=== PATIENT | female | born 1985 | race Caucasian/White ===

== ENCOUNTER 2019-07-25 10:31 | Outpatient (CLI) | payer OTHER, SELFPAY ==
--- NOTE | ~2019-07-25 | MR_ITS ---
EXAMINATION: MR MRCP wo/w con/w 3D wo ind DATE: 07/25/2019 11:53 INDICATION: Right upper quadrant pain, abnormal levels of other serum enzymes TECHNIQUE: Magnetic resonance imaging (MRI) of the abdomen was performed without and with intravenous contrast. Sequences included coronal T2-weighted SS-FSE ARC, coronal T2-weighted FS SS-FSE, coronal T2-weighted 2D FS FIESTA, Water:Coronal LAVA-Flex, sagittal T2-weighted SS-FSE ARC, axial SSFSE ARC, axial 3D DualEcho, axial DWI B=600, axial T1-weighted LAVA, FAT:Coronal LAVA-Flex, and coronal in and opposed phase LAVA-Flex. Thick-slab T2-weighted FRFSE-XL images were obtained for magnetic resonance cholangiopancreatography (MRCP). Maximum intensity projection 3-D reconstructions of the volumetric data were created by the technologist. Postcontrast sequences included a time course of axial T1-weig hted LAVA, FAT:Coronal LAVA-Flex, coronal in and opposed phase LAVA-Flex, and Water:Coronal LAVA-Flex . COMPARISON: Ultrasound, 05/22/2019 CONTRAST: Multihance, 13 cc FINDINGS: ABDOMEN MRI: The lung bases are clear. The heart size is normal. The liver, spleen, pancreas, gallbla dder, and adrenal glands are normal. There is a 6 mm cyst of the left mid kidney. The right kidney is normal. There are no pathologically enlarged abdominal lymph nodes. There are no dilated loops of padma wel. No abnormal enhancement is present after contrast administration. ABDOMEN MRCP: There is no intrahepatic or extrahepatic biliary dilatation. No stones or stricture are identified in the common bile duct. The pancreatic duct is normal in course and caliber. IMPRESSION: 1. No MRI correlate for the patient's symptoms. Reviewed, dictated and finalized at location A. OR SYSTEMS ENGINEER
[2019-07-25 11:08] LABS: Blood Urea Nitrogen 10 mg/dL (8-26); Estimated Glomerular Filt Rate > 60
== END 2019-07-25 10:32 | disposition home or self-care (01) ==
PROVIDERS: PCP Family Medicine; Visit Provider Internal Medicine Gastroenterology
DX: R74.8 Abnormal levels of other serum enzymes (principal); R10.11 Right upper quadrant pain
CPT/HCPCS: 74183; 76376; A9577

== ENCOUNTER → 2021-04-07 10:18 | Outpatient (CLI) | payer OTHER, SELFPAY ==
--- NOTE | ~2021-04-07 | US_ITS ---
EXAMINATION: US transvaginal DATE: 04/07/2021 10:46 INDICATION: Hypertrophy of the uterus TECHNIQUE: Multiple endovaginal sonographic images of the pelvis were obtained. COMPARISON: 02/23/2017 FINDINGS: The uterus measures 6.6 x 3.9 x 4.6 cm. There is a 2.0 x 1.6 cm subserosal fibroid of the p osterior uterine body. A 1.0 x 0.5 cm submucosal fibroid is seen in the anterior aspect of the uterin e body. The endometrial complex measures 3 mm. The right ovary measures 2.8 x 1.3 x 1.9 cm. The left ovary measures 2.6 x 1.7 x 2.5 cm. There is normal vascular flow in the ovaries. There is no free flu id in the pelvis. IMPRESSION: 1. Uterine fibroids. Reviewed, dictated and finalized at location A. IMPRESSION: 1. Uterine fibroids.
== END ==
PROVIDERS: Visit Provider Nurse Practitioner
DX: N85.2 Hypertrophy of uterus (principal); D25.9 Leiomyoma of uterus, unspecified
CPT/HCPCS: 76830

== ENCOUNTER 2024-05-06 07:43 | Outpatient (CLI) | payer OTHER, SELFPAY ==
--- NOTE | ~2024-05-06 | MM_ITS ---
EXAMINATION: MM screening [facility]el[place] BI w chace HISTORY: Screening TECHNIQUE: Craniocaudal and mediolateral oblique 3-D tomosynthesis images were obtained and synthetic 2-D images were generated. CAD analysis was submitted and interpreted. COMPARISON: Comparison to multiple prior studies sequentially, with oldest reviewed study dated 02/28. BREAST PARENCHYMAL COMPOSITION: Not dense: There are scattered areas of fibroglandular density. FINDINGS: There is a new mass in the upper outer quadrant of the right breast, middle third. The left breast is stable without evidence for malignancy. IMPRESSION: 1. New right breast mass. 2. Additional mammographic views and possible breast ultrasound are recommended. BI-RADS Category 0: Incomplete: Needs additional imaging evaluation. Reviewed, dictated and finalized at location B. L HARDENER IMPRESSION: 1. New right breast mass. 2. Additional mammographic views and possible breast ultrasound are recommended . BI-RADS Category 0: Incomplete: Needs additional imaging evaluation.
== END 2024-05-06 07:44 | disposition home or self-care (01) ==
LOC: ANHIMG 07:44
PROVIDERS: Visit Provider Nurse Practitioner
DX: Z12.31 Encounter for screening mammogram for malignant neoplasm of breast (principal); R92.8 Other abnormal and inconclusive findings on diagnostic imaging of breast
CPT/HCPCS: 77063; 77067

== ENCOUNTER 2024-05-21 10:38 | Outpatient (CLI) | payer OTHER, SELFPAY ==
--- NOTE | ~2024-05-21 | MMUS_ITS ---
EXAMINATION: MM diagnostic kelton RT w chace, US breast RT limited HISTORY: Follow-up new right breast mass TECHNIQUE: Additional 3-D tomosynthesis images of the right breast were performed and synthetic 2-D i mages were generated. CAD analysis was submitted and interpreted. High resolution Limited right breas t ultrasound was performed. COMPARISON: Comparison to multiple prior studies sequentially, with oldest reviewed study dated 02/28. BREAST PARENCHYMAL COMPOSITION: Not dense: There are scattered areas of fibroglandular density. FINDINGS: MAMMOGRAPHIC FINDINGS: There is an elliptical shaped mass in the upper outer quadrant of the right breast, middle third. The re are no suspicious calcifications or architectural distortion. ULTRASOUND: Limited right breast ultrasound: At 10:00, 4 cm from the nipple there is an oval low oriented hypoech oic mass without internal vascularity or posterior features measuring 10 x 10 x 4 mm. This correspond s to the mammographic finding. IMPRESSION: 1. Oval hypoechoic 10 mm right breast mass at 10:00, 4 cm from the nipple. 2. Ultrasound-guided right breast biopsy recommended. BI-RADS category 4, suspicious findings. Reviewed, dictated and finalized at location B. ODE RAY TUBE ASSEMBLER IMPRESSION: 1. Oval hypoechoic 10 mm right breast mass at 10:00, 4 cm from the nipple. 2. Ultrasound-guided right breast biopsy recommended. BI-RADS category 4, suspicious findings.
== END 2024-05-21 10:39 | disposition home or self-care (01) ==
LOC: ANHIMG 10:40
PROVIDERS: PCP Family Medicine; Visit Provider Obstetrics & Gynecology Gynecology
DX: R92.8 Other abnormal and inconclusive findings on diagnostic imaging of breast (principal)
CPT/HCPCS: 76642; 77061; 77065; G0279